=== PATIENT | male | born 1995 | race Caucasian/White ===

== ENCOUNTER 2018-05-17 21:41 | Emergency (ER) | payer OTHER ==
[2018-05-17 22:21] VITALS: RESP 18; TEMP 99.5
[2018-05-17] MEDS ORDERED: Albuterol-Ipratrop 3 mg / 0.5 (3 ml) UD IH STA (23:15)
--- NOTE | 2018-05-18 00:54 | ED PDOC ---
Arrival/HPI - General Chief Complaint: Cough, Cold, Congestion Time Seen by Provider: 05/17/18 22:38 Historian: Patient - History of Present Illness Narrative History of Present Illness (Text): 05/18/18 00:48 22-year-old male presents today with a cough 3 days. Patient states she was sick with URI symptoms for the past 4 days and hasn't had a cough for the past 3 days. Patient states every time that he gets sick he always ends up with this dry cough that he can't get to go away until he sees a doctor. Patient denies chest pain or shortness of breath. Patient is complaining of a nonproductive cough. Patient denies calf pain. Denies recent travel. Denies chest pain. Patient denies fevers or chills at home. Patient is complaining of nasal congestion and a sore throat. Patient denies numbness or weakness. Patient denies numbness weakness or tingling in the extremities. Patient denies sick contacts. No other complaints. Time/Duration: Other (4 days) Symptom Onset: Gradual Past Medical History - Provider Review Nursing Documentation Reviewed: Yes - Travel History Have you recently traveled outside [place] w/in the past 3 mons?: No - Tetanus Immunization Tetanus Immunization: Unknown - Psychiatric Hx Substance Use: No Family/Social History - Physician Review Nursing Documentation Reviewed: Yes Family/Social History: Unknown Family HX Smoking Status: n Hx Alcohol Use: No Hx Substance Use: No Allergies/Home Meds Allergies/Adverse Reactions: Allergies No Known Allergies Allergy (Verified 05/17/18 22:54) Review of Systems - Review of Systems Constitutional: absent: Fatigue, Fevers ENT: Sore Throat, Sinus Congestion Respiratory: Cough. absent: SOB Cardiovascular: absent: Chest Pain, Palpitations Gastrointestinal: absent: Abdominal Pain, Vomiting, Anorexia Genitourinary Male: absent: Dysuria, Frequency, Hematuria Musculoskeletal: absent: Arthralgias, Back Pain Skin: absent: Rash, Pruritis Neurological: absent: Headache, Dizziness Psychiatric: absent: Anxiety, Depression Physical Exam Vital Signs Reviewed: Yes Vital Signs Temp Pulse Resp BP Pulse Ox 05/17/18 22:18 99.5 F 92 H 18 114/72 98 Temperature: Afebrile Blood Pressure: Normal Pulse: Regular Respiratory Rate: Normal Appearance: Positive for: Well-Appearing, Non-Toxic, Comfortable Pain Distress: None Mental Status: Positive for: Alert and Oriented X 3 - Systems Exam Head: Present: Atraumatic Mouth: Present: Moist Mucous Membranes Neck: Present: Normal Range of Motion Respiratory/Chest: Present: Clear to Auscultation, Good Air Exchange, Other ( dry cough noted). No: Respiratory Distress, Accessory Muscle Use, Wheezes, Retracting, Rhonchi, Tachypneic Cardiovascular: Present: Regular Rate and Rhythm Abdomen: No: Tenderness, Rebound, Guarding Back: Present: Normal Inspection. No: Midline Tenderness, Paraspinal Tenderness Upper Extremity: Present: Normal ROM Lower Extremity: Present: Normal ROM. No: Edema Neurological: Present: GCS=15, Speech Normal Skin: Present: Warm, Dry, Normal Color. No: Rashes Psychiatric: Present: Alert, Oriented x 3 Medical Decision Making ED Course and Treatment: 05/18/18 01:00 Patient is nontoxic well-appearing in no distress. Vital signs are stable. pt with dry cough x 4 days. cxr; no infiltrate or effusion duoneb given as patient cant take deep breath without dry cough. pt reassessment; lungs cta bilaterally; no cough noted. pt feeling much better. 2nd duoneb added; prednisone 60mg po given. Zithromax PO pt reassessment; cough resolved; pt feeling better; no distress. vitals stable. I advised follow up with primary care physician within the next 2 days. I advised increase fluids and return if symptoms worsen persist or if new symptoms develop. I advised follow-up with the admitting coordinator and primary care physician within the next 2 days. Patient verbalizes understanding of discharge instructions and need for immediate followup. all aspects of this case were discussed the attending of record. IMPRESSION; cough prednisone daily x 4 days albuterol nebulizer 3 times daily as needed for cough Use albuterol inhaler every 6 hours as needed for cough. Zithromax one tablet once daily x4 days FLonase; 2 sprays each nostril once daily. Increase fluids Followup with primary care physician the next 2 days Follow up with the admitting coordinator within the next 2 days. Return if symptoms worsen persist or if new symptoms develop Reassessment Condition: Re-examined, Improved - RAD Interpretation Radiology Orders: 05/17/18 23:15 CHEST TWO VIEWS (PA/LAT) [RAD] Stat - Medication Orders Current Medication Orders: Discontinued Medications Albuterol/Ipratropium (Duoneb 3 Mg/0.5 Mg (3 Ml) Ud) 3 ml IH STAT STA Stop: 05/17/18 23:16 Last Admin: 05/17/18 23:26 Dose: 3 ml Disposition/Present on Arrival - Present on Arrival Any Indicators Present on Arrival: No History of DVT/PE: No History of Uncontrolled Diabetes: No Urinary Catheter: No History of Decub. Ulcer: No History Surgical Site Infection Following: None - Disposition Have Diagnosis and Disposition been Completed?: Yes Diagnosis: Cough Disposition: HOME/ ROUTINE Disposition Time: :11 Patient Plan: Discharge Condition: GOOD Discharge Instructions (ExitCare): Cough in Adults Additional Instructions: prednisone daily x 4 days albuterol nebulizer 3 times daily as needed for cough Use albuterol inhaler every 6 hours as needed for cough. Zithromax one tablet once daily x4 days FLonase; 2 sprays each nostril once daily. Increase fluids Followup with primary care physician the next 2 days Follow up with the admitting coordinator within the next 2 days. Return if symptoms worsen persist or if new symptoms develop Prescriptions: Albuterol HFA [Ventolin HFA 90 mcg/actuation (8 g)] 2 puff IH [id number] PRN #1 inhaler PRN Reason: Cough Albuterol 0.083% [Albuterol 0.083% Inhal Val (2.5 mg/3 ml) UD] 1 vial IH TID PRN #1 packet PRN Reason: Cough Azithromycin [Zithromax] 250 mg PO DAILY #4 tab Nebulizer [Compact Compressor Nebulizer] 1 dev XX PRN PRN #1 dev PRN Reason: Cough predniSONE [predniSONE Tab] 3 tab PO DAILY #12 tab Referrals: Aguilar Hernandez MD [Staff Provider] - Follow up with primary Dinesh Rosenbaum MD [Staff Provider] - Follow up with primary Forms: [email or web address] (Korean), WORK NOTE
[2018-05-18] MEDS ORDERED: Albuterol-Ipratrop 3 mg / 0.5 (3 ml) UD IH STA (00:56)
[2018-05-18 01:14] VITALS: BP 116/74
[2018-05-18 04:02] VITALS: PULSE 97; O2SAT 99
--- NOTE | 2018-05-18 11:40 | RAD ---
HISTORY: cough x 3 days COMPARISON: No prior. TECHNIQUE: Chest PA and lateral FINDINGS: LUNGS: No active pulmonary disease. PLEURA: No significant pleural effusion identified. No pneumothorax apparent. CARDIOVASCULAR: Normal. OSSEOUS STRUCTURES: No significant abnormalities. VISUALIZED UPPER ABDOMEN: Normal. OTHER FINDINGS: None. IMPRESSION: No active disease.
== END 2018-05-18 01:38 | disposition home or self-care (01) ==
LOC: ED 21:41
DX: R05 Cough (principal)